=== PATIENT | male | born 1980 | race Caucasian/White ===

== ENCOUNTER 2021-04-01 20:57 | Emergency (ER) | payer OTHER ==
[2021-04-01] MEDS ORDERED: Proparacaine 0.5% Ophth Soln 15 ML Bottle EYEBOTH STA (21:55)
[2021-04-01] MEDS ORDERED: Diphtheria,Pertussis(Acell),Tetanus Vaccine 0.5 ML Syringe IM ONE (22:08)
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
== END 2021-04-01 22:19 | disposition home or self-care (01) ==
LOC: JP.ED 20:57
DX: S05.01XA Injury of conjunctiva and corneal abrasion without foreign body, right eye, initial encounter (principal); H11.421 Conjunctival edema, right eye; Z23 Encounter for immunization; V86.99XA Unspecified occupant of other special all-terrain or other off-road motor vehicle injured in nontraffic accident, initial encounter
CPT/HCPCS: 90471; 90715; 99283; A9270